=== PATIENT | female | born 1950 ===

== ENCOUNTER 2021-08-25 12:18 | Outpatient (CLI) | payer MEDICARE, SELFPAY ==
--- NOTE | ~2021-08-25 | XR_ITS ---
EXAMINATION: XR foot LT standing 2V DATE: 08/25/2021 13:11 INDICATION: Arthritis. Other specified counseling. TECHNIQUE: 2 views of left foot with weightbearing were obtained. COMPARISON: None. FINDINGS: Bone alignment is normal. No fracture. There are severe erosions at second and third metata rsophalangeal joints. There are erosions of head of first proximal phalanx. There is mild osteoarthri tis of some the interphalangeal joints. There is moderate osteoarthritis of second distal interphalan geal joint. IMPRESSION: 1. 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 The dif ferential diagnosis includes rheumatoid arthritis and psoriatic arthritis. 2. Erosions of head of first proximal phalanx. The differential diagnosis includes gout, rheumatoid a rthritis, and psoriatic arthritis. Reviewed, dictated and finalized at location A. RNEY IMPRESSION: 1. Severe inflammatory arthropathy involving the second and third metatarsophal angeal joints. The differential diagnosis includes rheumatoid arthritis and pso riatic arthritis. 2. Erosions of head of first proximal phalanx. The differential diagnosis inclu jordyn gout, rheumatoid arthritis, and psoriatic arthritis.
--- NOTE | ~2021-08-25 | XR_ITS ---
EXAMINATION: XR foot RT standing 2V DATE: 08/25/2021 13:11 INDICATION: Arthritis. TECHNIQUE: 2 views of right foot with weightbearing were obtained. COMPARISON: None. FINDINGS: There is dorsiflexion at the metatarsophalangeal joints. No fracture. There are extensive e rosions at all of the metatarsophalangeal joints. There is mild osteoarthritis of some of the interph alangeal joints. There are erosions versus subchondral cysts at first interphalangeal joint. IMPRESSION: 1. Severe inflammatory arthropathy involving the metatarsophalangeal joints, consistent with inflamma tory arthropathy such as rheumatoid arthritis or psoriatic arthritis. Reviewed, dictated and finalized at location A. COUNSELOR IMPRESSION: 1. Severe inflammatory arthropathy involving the metatarsophalangeal joints, co nsistent with inflammatory arthropathy such as rheumatoid arthritis or psoriati c arthritis.
--- NOTE | ~2021-08-25 | XR_ITS ---
EXAMINATION: XR hand BI arthritis min 3V DATE: 08/25/2021 13:11 INDICATION: Other specified counseling. Arthritis. TECHNIQUE: 4 views of right hand and 4 views of left hand on a total of 7 radiographs were obtained. COMPARISON: None. FINDINGS: RIGHT HAND: Bone alignment is normal. 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 No fr acture. There is mild osteoarthritis of first carpometacarpal joint. There is moderate joint space na rrowing at third metacarpophalangeal joint. There is polyarticular osteoarthritis involving the inter phalangeal joints, severe at third distal interphalangeal joint and moderate at second and fourth pro ximal and distal interphalangeal joints. There is soft tissue swelling at the second and fourth proxi mal interphalangeal joints. There is dorsal soft tissue swelling at third metacarpophalangeal joint w ith a chronic erosion of the dorsal neck of the metacarpal. 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 There is moderate osteoarthritis of first carpometacarpal joint. There is osteoarthritis of many of the interphalangeal joints, sever e at second and third distal interphalangeal joints and moderate at second through fifth proximal int erphalangeal joints and fourth distal interphalangeal joint. IMPRESSION: 1. Soft tissue swelling dorsal to the right third metacarpophalangeal joint with chronic erosion of d orsal neck of right third metacarpal and moderate joint space narrowing at third metacarpophalangeal joint, most likely rheumatoid arthritis. 2. Polyarticular osteoarthritis. Reviewed, dictated and finalized at location A. ION MECHANIC APPRENTICE IMPRESSION: 1. Soft tissue swelling dorsal to the right third metacarpophalangeal joint wit h chronic erosion of dorsal neck of right third metacarpal and moderate joint s pace narrowing at third metacarpophalangeal joint, most likely rheumatoid arthr itis. 2. Polyarticular osteoarthritis.
[2021-08-25 14:04] LABS: Hematocrit 40.2 % (37.0-47.0); Hemoglobin 13.2 g/dL (12.0-15.0); Mean Corpuscular HGB Conc 32.8 g/dl (32-36); Mean Corpuscular Hemoglobin 32.3 pg (26-34); Mean Corpuscular Volume 98.3 fl (80-100); Platelet Count Result 390 k/mm3 (150-375); Red Blood Count 4.09 M/mm3 (4.2-5.4); Red Cell Distribution Width 13.5 % (11.5-14.5); White Blood Count 12.7 K/mm3 (4.5-10.0)
[2021-08-25 14:24] LABS: Alanine Aminotransferase 13 U/L (4-35); Albumin Level 4.2 g/dL (3.5-5.1); Alkaline Phosphatase 72 U/L (38-126); Anion Gap 11 mmol/L (8-16); Aspartate Amino Transferase 27 U/L (14-36); Bilirubin,Total 0.7 mg/dL (0.2-1.3); Blood Urea Nitrogen 8 mg/dL (7-17); CRP < 0.5 mg/dL (<1.0); Calcium 9.5 mg/dL (8.4-10.2); Carbon Dioxide 24 mmol/L (22-30); Chloride 104 mmol/L (98-107); Estimated Glomerular Filt Rate > 60; Glucose 99 mg/dL (65-110); Sodium 139 mmol/L (137-145)
[2021-08-25 15:09] LABS: Rheumatoid Factor > 120.0 IU/ML (<12)
[2021-08-25 15:09] LABS: Erythrocyte Sedimentation Rate 24 mm/hr (0-20)
[2021-08-25 15:30] LABS: Hepatitis B Surface Antigen Negative (Negative)
[2021-08-25 15:47] LABS: Hepatitis B Surface Anti Res Negative; Hepatitis C Virus Antibody Negative (Negative)
[2021-08-30 21:23] LABS: SM Antibody <1.0; SM/RNP Antibody <1.0; SS-A <1.0; SS-B <1.0
[2021-08-30 23:31] LABS: Anti Cyclic Citrullinated Pept >250 Units (<20)
== END 2021-08-25 12:19 | disposition home or self-care (01) ==
PROVIDERS: PCP Family Medicine; Visit Provider Internal Medicine
DX: E03.9 Hypothyroidism, unspecified (principal); E55.9 Vitamin D deficiency, unspecified; M05.79 Rheumatoid arthritis with rheumatoid factor of multiple sites without organ or systems involvement; Z72.0 Tobacco use; Z79.899 Other long term (current) drug therapy; M19.90 Unspecified osteoarthritis, unspecified site; M05.7A Rheumatoid arthritis with rheumatoid factor of other specified site without organ or systems involvement; M79.89 Other specified soft tissue disorders; M12.872 Other specific arthropathies, not elsewhere classified, left ankle and foot; M12.871 Other specific arthropathies, not elsewhere classified, right ankle and foot; M19.072 Primary osteoarthritis, left ankle and foot; M19.071 Primary osteoarthritis, right ankle and foot; M19.042 Primary osteoarthritis, left hand; M19.041 Primary osteoarthritis, right hand
CPT/HCPCS: 36415; 73130; 73620; 80053; 85027; 85652; 86038; 86039; 86140; 86200; 86225; 86235; 86430; 86706; 86803; 87340

== ENCOUNTER 2022-09-08 11:31 | Outpatient (CLI) | payer MEDICARE, SELFPAY ==
[2022-09-08 13:35] LABS: Vitamin D 25 Hydroxy 48.1 ng/mL
[2022-09-08 14:01] LABS: Cholesterol 248 mg/dL (0-200); HDL Direct 52 mg/dL; Triglycerides 160 mg/dL (<150)
[2022-09-08 14:12] LABS: LDL Cholesterol Direct 130 mg/dL
[2022-09-08 19:53] LABS: Free T4 Free Thyroxine Reflex 0.83 ng/dL (0.78-2.19)
== END 2022-09-08 11:32 | disposition home or self-care (01) ==
LOC: ANHLAB 11:37
PROVIDERS: PCP Family Medicine; Visit Provider Family Medicine
DX: E78.2 Mixed hyperlipidemia (principal); E03.9 Hypothyroidism, unspecified; E55.9 Vitamin D deficiency, unspecified; E53.8 Deficiency of other specified B group vitamins; R53.83 Other fatigue; M05.79 Rheumatoid arthritis with rheumatoid factor of multiple sites without organ or systems involvement
CPT/HCPCS: 36415; 80061; 82306; 82607; 84439; 84443; 84480